=== PATIENT | female | born 1945 | race Caucasian/White ===

== ENCOUNTER → 2016-10-05 | Outpatient (CLI) | payer MEDICARE, OTHER ==
--- NOTE | 2016-10-06 14:19 | RAD ---
DATE: 10/05/2016 EXAM: MAMMO ANNY SCREENING BILATERAL HISTORY: Routine screening COMPARISON: 08/06/2015 This study was interpreted with the benefit of Computerized Aided Detection (CAD). The breast parenchyma shows scattered fibroglandular densities. Breast parenchyma level B. FINDINGS: 2-D and 3-D tomosynthesis imaging was performed in CC and MLO projections. No new or enlarging breast densities are seen. Numerous benign type calcifications are again noted. No suspicious microcalcifications have developed. IMPRESSION: Stable mammograms without evidence of malignancy. BI-RADS CATEGORY: 2 BENIGN FINDING(S) RECOMMENDED FOLLOW-UP: 12M 12 MONTH FOLLOW-UP PQRS compliance statement: Patient information was entered into a reminder system with a target due date for the next mammogram. Mammography is a sensitive method for finding small breast cancers, but it does not detect them all and is not a substitute for careful clinical examination. A negative mammogram does not negate a clinically suspicious finding and should not result in delay in biopsying a clinically suspicious abnormality. "Our facility is accredited by the [employer] Mammography [employer]."
== END | disposition home or self-care (01) ==
LOC: MAMMO 08:26
PROVIDERS: ATTEND Physician Assistant
DX: Z12.31 Encounter for screening mammogram for malignant neoplasm of breast (principal)
CPT/HCPCS: 77063; G0202; 77067

== ENCOUNTER → 2016-10-26 | Outpatient (CLI) | payer MEDICARE, OTHER ==
--- NOTE | 2016-10-26 09:04 | RAD ---
Right shoulder radiograph 10/26/2016 at 0852 hours Indication: History of rotator cuff injury 2004. Right shoulder pain for one day. Comparison: Shoulder MRI 12/20/2003 Technique: 3 views of the right shoulder are provided. Findings: There is no acute fracture or dislocation of the glenohumeral joint. Osseous remodeling of the chronic clavicular joint is noted with moderate osteoarthrosis. There is deformity of the distal clavicle, which may be postsurgical. Advanced osteoarthrosis of the glenohumeral joint is noted with humeral osteophytosis and joint space narrowing. Increased sclerosis along the superolateral aspect of the humeral head is suggestive of long-standing rotator cuff arthropathy. Impression: No acute fracture or dislocation. Advanced degenerative changes are noted at the acromioclavicular joint and glenohumeral joints, some of which reflects postsurgical changes.
== END | disposition home or self-care (01) ==
LOC: DXRADRC 08:44
PROVIDERS: ATTEND Physician Assistant Medical
DX: M19.011 Primary osteoarthritis, right shoulder (principal); M95.8 Other specified acquired deformities of musculoskeletal system
CPT/HCPCS: 73030

== ENCOUNTER → 2017-06-29 | Outpatient (CLI) | payer MEDICARE, OTHER ==
--- NOTE | 2017-06-29 12:11 | CARD ---
MR#: [id number] Date of Study: 06/29/2017 Ordering Physician: OFELIA BLAKE, Referring Physician: Evelia MCFARLANE: BLAYNE Garrison APPROVED REPORT EXAM: Two-dimensional and M-mode echocardiogram with Doppler and color Doppler. Other Information Quality : AverageHR: 76bpm INDICATION Dyspnea 2D DIMENSIONS Left Atrium(2D)4.0 (1.6-4.0cm)IVSd1.0 (0.7-1.1cm) Aortic Root(2D)2.8 (2.0-3.7cm)LVDd4.0 (3.9-5.9cm) LVOT Diameter1.9 (1.8-2.4cm)PWd1.2 (0.7-1.1cm) LVDs2.6 (2.5-4.0cm)FS (%) 34.9 % SV46.2 mlLVEF(%)64.7 (>50%) Aortic Valve AoV Peak Zoltan.171.6cm/sAoV VTI39.8cm AO Peak GR.11.8mmHgLVOT Peak Zoltan.112.1cm/s LVOT VTI 27.17cmAO Mean GR.6mmHg THOM (VMAX)1.55jf0ECG (VTI)2.00cm2 Mitral Valve MV E Aaedohnq34.5cm/sMV E Peak Gr.103mmHg MV DECEL LLVP435rbRU A Zxfvflak513.5cm/s E/A Ratio0.9 Pulmonary Valve PV Peak Lmetkcca18.7cm/sPV Peak Grad.3mmHg Tricuspid Valve TR P. Bdplhxbb562bb/sTR Peak Gr.30mmHg Pulmonary Vein S1 Fihtwrdm43.8cm/sD2 Vgwxjnnr76.8cm/s LEFT VENTRICLE The left ventricle is normal size. The left ventricular systolic function is normal . The ejection fr action is estimated at 60-65%. There is normal LV segmental wall motion. The left ventricular diastol ic function and filling is normal for age. RIGHT VENTRICLE The right ventricle is normal size. There is normal right ventricular wall thickness. The right ventr icular systolic function is normal. ATRIA The left atrium is borderline dilated. The right atrium is borderline dilated. The interatrial septum is intact with no evidence for an atrial septal defect or patent foramen ovale as noted on 2-D or Do ppler imaging. AORTIC VALVE The aortic valve is thickened but opens well. Doppler and Color Flow revealed no significant aortic r egurgitation. There is no significant aortic valvular stenosis. There is no aortic valvular vegetatio n. MITRAL VALVE The mitral valve is thickened but opens well. There is no evidence of mitral valve prolapse. There is no mitral valve stenosis. Doppler and Color-flow revealed mildmitral regurgitation. TRICUSPID VALVE The tricuspid valve is not well visualized. Doppler and Color Flow revealed mild to moderate tricuspi d regurgitation. There is no tricuspid valve prolapse or vegetation. There is no tricuspid valve sten osis. PULMONIC VALVE The pulmonic valve is not well visualized. Doppler and Color Flow revealed no pulmonic valvular regur gitation. There is no pulmonic valvular stenosis. GREAT VESSELS The aortic root is normal in size. The IVC is normal in size and collapses >50% with inspiration. PERICARDIAL EFFUSION There is no pleural effusion. There is no evidence of significant pericardial effusion. Critical Notification Critical Value: No <Conclusion> The left ventricular systolic function is normal . The ejection fraction is estimated at 60-65%. There is normal LV segmental wall motion. Mild mitral regurgitation. Mild to moderate tricuspid regurgitation. There is no evidence of significant pericardial effusion. Signed by : Dayo Farrell, Electronically Approved : 06/29/2017 12:10:18
== END | disposition home or self-care (01) ==
LOC: ECHO 10:34
PROVIDERS: ATTEND Nurse Practitioner Family
DX: I08.1 Rheumatic disorders of both mitral and tricuspid valves (principal)
CPT/HCPCS: 93306

== ENCOUNTER → 2017-07-09 | Outpatient (CLI) | payer MEDICARE, OTHER ==
--- NOTE | 2017-07-09 15:21 | RAD ---
Chest, 2 views, 07/09/2017: History: Dyspnea, shortness of breath The heart size is normal. There is a retrocardiac mass at the midline suggesting a hiatal hernia. The pulmonary vascularity is normal. No pulmonary infiltrate is seen. There is no evidence of pleural fluid. Moderate hypertrophic spurring is present in the spine. An inferior vena cava filter is partially visualized in the abdomen. IMPRESSION: 1. Retrocardiac mass suggesting a moderate-sized hiatal hernia. Some other type of mediastinal mass cannot be entirely excluded. CT scanning of the chest may be useful for confirmation. 2. No acute infiltrates.
== END | disposition home or self-care (01) ==
LOC: PMG 14:26
PROVIDERS: ATTEND Physician Assistant
DX: R06.00 Dyspnea, unspecified (principal)
CPT/HCPCS: 71046

== ENCOUNTER → 2017-07-13 | Outpatient (CLI) | payer MEDICARE, OTHER ==
--- NOTE | 2017-07-13 12:46 | RAD ---
Bone Densitometry 07/13/2017 History: Postmenopausal patient. Former smoker. Ovarian failure. Comparison study: None available Findings: Bone Densitometry was performed with dual photon absorption of the lumbar spine and proximal right femur. Lumbar Spine: Bone density is 1.143 g/cm2 for L1-L4. T-score is -0.3. Z-score is 0.4. Right Femur: Bone density is 0.772 g/cm2. T-score is -1.9. Z-score is -0.1 IMPRESSION: Osteopenia of the right femoral neck. Normal bone mineral density of the lumbar spine. World Health Organization definition of osteoporosis and osteopenia for women: normal equals T score at or above -1.0 standard deviations; osteopenia equals T score between -1.0 and -2.5 standard deviations; osteoporosis equals T score at or below -2.5 standard deviations.
== END | disposition home or self-care (01) ==
LOC: DXRAD 10:04
PROVIDERS: ATTEND Physician Assistant
DX: M85.88 Other specified disorders of bone density and structure, other site (principal); M81.0 Age-related osteoporosis without current pathological fracture
CPT/HCPCS: 77080

== ENCOUNTER → 2017-07-26 | Outpatient (CLI) | payer MEDICARE, OTHER ==
[~2017-07-26] MED LIST: IOHEXOL 300 MG/ML 75 ML VIAL. IV ONE
[2017-07-26 10:35] LABS: CREATININE 0.8 mg/dL (0.6-1.0); GFR 70.3
--- NOTE | 2017-07-26 17:17 | RAD ---
Indication: Abnormal chest radiograph with retrocardiac mass. Shortness of air. Technique: Axial images and coronal and sagittal reformatted images are provided. Center 5 mL of intravenous Omnipaque 300 was administered without complication. Comparison chest radiograph is from July 09, 2017. One or more of the following individualized dose reduction techniques were utilized for this examination: 1. Automated exposure control 2. Adjustment of the mA and/or kV according to patient size 3. Use of iterative reconstruction technique Findings: Medium-sized hiatal hernia corresponds to the area of concern on chest radiograph. There is no hilar or mediastinal adenopathy. Heart is not enlarged. Coronary artery calcifications are noted. There is atheromatous disease in the thoracic aorta. Central airways are patent. There is no pleural effusion. There is a noncalcified pulmonary nodule in the right lower lobe measuring 6 mm, axial image 45. There is dependent atelectasis and some atelectasis associated with the hiatal hernia. There is no consolidation. There is fatty infiltration of the liver. There are prominent collaterals in the subcutaneous tissues, there are prominent collaterals in the upper abdomen. The superior vena cava is patent. The presence of these collaterals is concerning for potential IVC pathology such as occlusion. There are degenerative changes in the spine. IMPRESSION: 1. Hiatal hernia corresponds to the area concern on chest radiograph. 2. Prominent collaterals in the upper abdomen and in the subcutaneous tissues. The superior vena cava is opacified and appears patent. This raises concern for infrarenal IVC occlusion. Please correlate clinically. Consider CT abdomen and pelvis with IV contrast if further workup is required. 3. Pulmonary nodule, in a low-risk patient no further workup is required. 12 month follow-up can be considered in a high-risk patient. Electronically signed by: Blake Reyes MD (07/26/2017 5:14 PM) [id number]
== END | disposition home or self-care (01) ==
LOC: CT 09:46
PROVIDERS: ATTEND Physician Assistant
DX: R91.8 Other nonspecific abnormal finding of lung field (principal); I70.0 Atherosclerosis of aorta; I25.10 Atherosclerotic heart disease of native coronary artery without angina pectoris; K44.9 Diaphragmatic hernia without obstruction or gangrene
CPT/HCPCS: 36415; 71260; 82565; 84520; Q9967

== ENCOUNTER → 2017-11-04 | Outpatient (CLI) | payer MEDICARE, OTHER ==
--- NOTE | 2017-11-04 10:07 | RAD ---
DATE: 11/04/2017 EXAM: DIGITAL SCREEN BILAT W/CAD HISTORY: Routine screening COMPARISON: 10/05/2016 This study was interpreted with the benefit of Computerized Aided Detection (CAD). The breast parenchyma shows scattered fibroglandular densities. Breast parenchyma level B. FINDINGS: No new or enlarging breast densities are seen. Numerous benign type calcifications in both breasts appear stable. IMPRESSION: Stable mammograms without evidence of malignancy. BI-RADS CATEGORY: 2 BENIGN FINDING(S) RECOMMENDED FOLLOW-UP: 12M 12 MONTH FOLLOW-UP PQRS compliance statement: Patient information was entered into a reminder system with a target due date for the next mammogram. Mammography is a sensitive method for finding small breast cancers, but it does not detect them all and is not a substitute for careful clinical examination. A negative mammogram does not negate a clinically suspicious finding and should not result in delay in biopsying a clinically suspicious abnormality. "Our facility is accredited by the [employer] Mammography [employer]."
== END | disposition home or self-care (01) ==
LOC: MAMMO 08:52
PROVIDERS: ATTEND Physician Assistant
DX: Z12.31 Encounter for screening mammogram for malignant neoplasm of breast (principal); M19.011 Primary osteoarthritis, right shoulder; I25.10 Atherosclerotic heart disease of native coronary artery without angina pectoris
CPT/HCPCS: 77067

== ENCOUNTER → 2018-10-18 | Outpatient (CLI) | payer MEDICARE, OTHER ==
--- NOTE | 2018-10-18 16:17 | RAD ---
EXAM: Chest, 2 views. HISTORY: Pain. COMPARISON: None. FINDINGS: 2 views of the chest are obtained. There is no infiltrate, pleural effusion or pneumothorax. The heart is normal in size. There is a moderate hiatal hernia. IMPRESSION: No acute pulmonary finding. Electronically signed by: Dyan Wright MD (10/18/2018 4:13 PM) [facility]
== END | disposition home or self-care (01) ==
LOC: PMG 10:34
PROVIDERS: ATTEND Physician Assistant
DX: R01.1 Cardiac murmur, unspecified (principal); K44.9 Diaphragmatic hernia without obstruction or gangrene
CPT/HCPCS: 71046

== ENCOUNTER → 2020-05-20 | Outpatient (CLI) | payer MEDICARE, OTHER ==
--- NOTE | 2020-05-20 09:14 | RAD ---
EXAM: Pelvis and left hip, 3 views. HISTORY: Pain. COMPARISON: None. FINDINGS: A frontal view the pelvis and 2 views of the left hip are obtained. There is no fracture, d islocation or subluxation. There is degenerative change involving the lower lumbar spine. There is pa rtial visualization of an IVC filter. There is subchondral scoliosis involving the sacroiliac joints and pubis symphysis. There is a suspected small bone island within the left femoral head. IMPRESSION: No acute osseous finding. Electronically signed by: Dyan Wright MD (05/20/2020 9:11 AM) [id number]
== END ==
LOC: RAD 08:28
PROVIDERS: ATTEND Nurse Practitioner Family
DX: S79.912A Unspecified injury of left hip, initial encounter (principal); W19.XXXA Unspecified fall, initial encounter; Y93.89 Activity, other specified; Y92.89 Other specified places as the place of occurrence of the external cause; Y99.8 Other external cause status
CPT/HCPCS: 73502

== ENCOUNTER → 2021-01-28 | Outpatient (CLI) | payer MEDICARE, OTHER ==
--- NOTE | 2021-01-28 12:06 | RAD ---
EXAM: DUAL ENERGY X-RAY ABSORPTIOMETRY (DEXA). HISTORY: Postmenopausal screening. FINDINGS: The lowest measured T-score is -1.7 in the left hip, based on a bone mineral density of 0.7 44 g/cm^2. Refer to the worksheets for full detail. No comparison examinations are available. IMPRESSION: 1. Low bone mass. Bone mineral density yields a T-score between -1.0 and -2.5. Fracture risk is incre ased. 2. FRAX report: Not calculated. METHODOLOGY: Dual energy x-ray absorptiometry was performed to measure bone mineral density. The foll owing analysis is based on the 2019 Official Positions of the International Society for Clinical Dens itometry: Measurements of the hips and the average of L1-L4 are preferred. When the spine and/or hip cannot be feasibly measured or interpreted, or in the setting of hyperparathyroidism, distal radial bone minera l density may be measured. The lumbar spine T-score is based on the average bone mineral density of L1-L4. In the setting of art ifact or anatomic abnormality, some lumbar levels may be excluded, and the remaining levels used for calculation. A single lumbar level is not used for diagnosis, and if only a single level is available for assessment, another anatomic site will be used to assign a diagnosis. The hip T-score is based on the bone mineral density measurement of the femoral neck or total proxima l femur of either side, whichever is lowest. Bilateral mean values are not used for diagnosis. The forearm T-score is derived from 33% of the distal radius of the nondominant forearm. Electronically signed by: Dyan Wright MD (01/28/2021 11:40 AM) [id number]
--- NOTE | 2021-01-28 17:03 | RAD ---
Bilateral digital screening mammogram: Reason for examination: Routine screening. Comparison is made to previous study dated 11/04/2017. Interpretation was made with the benefit of CAD. Findings: Breast density: Category B. There are scattered areas of fibroglandular density.. There are no dominant masses, suspicious calcifications or architectural distortions. Impression: No evidence of malignancy. Recommend routine screening. BI-RADS Category 1: Negative. This patient's information has been entered into a reminder system for the patient to be notified wit h the results of her examination and a target date for the next mammogram. Electronically signed by: Dunia Bray MD (01/28/2021 5:00 PM) [id number]
== END ==
LOC: DXRAD 10:45
DX: Z12.31 Encounter for screening mammogram for malignant neoplasm of breast (principal); M85.80 Other specified disorders of bone density and structure, unspecified site; Z78.0 Asymptomatic menopausal state
CPT/HCPCS: 77067; 77080